=== PATIENT | female | born 1995 | race Caucasian/White ===

== ENCOUNTER 2017-02-16 17:49 | Emergency (ER) | payer OTHER ==
[2017-02-16 18:04] VITALS: BP 140/65
--- NOTE | 2017-02-16 18:35 | UC ---
General HPI - HPI Summary HPI Summary: Patient found a mouse in the tank of her [employer] machine this morning after having a bad tasting coffee. mother had recently been ill and thery are worried it was from using the [employer] - History of Current Complaint Chief Complaint: UCGeneralIllness Stated Complaint: DRANK H2O WITH MOUSE IN IT Time Seen by Provider: 02/16/17 18:18 Hx Obtained From: Patient Onset/Duration: Sudden Onset, Lasting Hours Timing: Constant Onset Severity: Mild Current Severity: Mild - Allergy/Home Medications Allergies/Adverse Reactions: Allergies Allergy/AdvReac Type Severity Reaction Status Date / Time No Known Allergies Allergy Verified 02/16/17 18:04 Home Medications: Home Medications Etonogestrel IMPLANT(NF) [Implanon (NF)] 68 mg IMPLANT ONCE 02/16/17 [History Confirmed 02/16/17] PMH/Surg Hx/FS Hx/Imm Hx Previously Healthy: Yes - Surgical History Surgical History: Yes Surgery Procedure, Year, and Place: tonsillectomy. adenoidectomy. ear tubes - Family History Known Family History: Positive: Hypertension - Social History Alcohol Use: None Substance Use Type: None Smoking Status (MU): Never Smoked Tobacco - Immunization History Vaccination Up to Date: Yes Review of Systems Skin: Negative Eyes: Negative ENT: Negative Respiratory: Negative Cardiovascular: Negative Gastrointestinal: Negative Genitourinary: Negative Motor: Negative Neurovascular: Negative Musculoskeletal: Negative Neurological: Negative Psychological: Negative All Other Systems Reviewed And Are Negative: Yes Physical Exam Triage Information Reviewed: Yes Appearance: Well-Appearing, Well-Nourished, Pain Distress Vital Signs: Initial Vital Signs Temp 98.7 F 02/16/17 18:01 Pulse 87 02/16/17 18:01 Resp 14 02/16/17 18:01 BP 140/65 02/16/17 18:01 Pulse Ox 100 02/16/17 18:01 Vital Signs Reviewed: Yes Eye Exam: Normal Eyes: Positive: Conjunctiva Clear ENT Exam: Normal ENT: Positive: Hearing grossly normal, Pharynx normal, TMs normal Dental Exam: Normal Neck exam: Normal Neck: Positive: Supple, Nontender, No Lymphadenopathy Respiratory Exam: Normal Respiratory: Positive: Chest non-tender, Lungs clear, Normal breath sounds Cardiovascular Exam: Normal Cardiovascular: Positive: RRR, No Murmur, Pulses Normal Abdominal Exam: Normal Abdomen Description: Positive: Nontender, No Organomegaly, Soft Bowel Sounds: Positive: Present Musculoskeletal Exam: Normal Musculoskeletal: Positive: Strength Intact, ROM Intact, No Edema Neurological Exam: Normal Neurological: Positive: Alert, Muscle Tone Normal Psychological Exam: Normal Skin Exam: Normal Course/Dx - Course Course Of Treatment: hx obtained, exam performed, zofran given for nausea, recommend follow up if she becomes symtpomatic - Differential Dx - Multi-Symptom Provider Diagnoses: nausea Discharge - Discharge Plan Condition: Stable Disposition: HOME Prescriptions: Ciprofloxacin TAB* [Cipro 500 MG TAB*] 500 mg PO BID #6 tab Ondansetron ODT TAB* [Zofran 4 MG Odt TAB*] 4 mg PO Q8H PRN #24 tab.odt PRN Reason: Nausea Patient Education Materials: Acute Nausea and Vomiting (ED) Additional Instructions: use the zofran for any nausea, follow up with any vomiting or diarrhea for further testing.
== END 2017-02-16 18:43 | disposition home or self-care (01) ==
LOC: UCCORT 17:49
DX: R11.0 Nausea (principal)
CPT/HCPCS: 99212; G0463

== ENCOUNTER 2017-02-27 14:50 | Emergency (ER) | payer OTHER ==
[2017-02-27 16:58] VITALS: BP 109/67
--- NOTE | 2017-02-27 17:11 | UC ---
Skin Complaint HPI - HPI Summary HPI Summary: pt presents with c/o of erythematous area on right medial aspect of distal 4th finger and proximal right, third finger. Pt reports that she is curretnly taking Cipro for a diagnosis of sinusitis and began taking the medication on 02/24. Pt was also diagnosed with mono. - History of Current Complaint Chief Complaint: UCUpperExtremity Time Seen by Provider: 02/27/17 17:03 Stated Complaint: skin complaint Hx Obtained From: Patient Hx Last Menstrual Period: NEXPLANON ?: No Onset/Duration: Sudden Onset, Lasting Hours Skin Exposure Onset/Duration: Hours Ago Timing: Constant Onset Severity: Mild Current Severity: Mild Location: Discrete, Hand (Right) - right 3rd and 4th finger Character: Pruritus, Hives, Redness, Painful Aggravating: Touch Alleviating: Nothing Associated Signs & Symptoms: Positive: Rash, Tenderness Related History: Recent change in medication - Allergy/Home Medications Allergies/Adverse Reactions: Allergies Allergy/AdvReac Type Severity Reaction Status Date / Time No Known Allergies Allergy Verified 02/27/17 16:58 Review of Systems Constitutional: Fatigue Skin: Rash Eyes: Negative ENT: Negative Respiratory: Cough Cardiovascular: Negative Gastrointestinal: Negative Genitourinary: Negative Motor: Negative Neurovascular: Negative Musculoskeletal: Negative Neurological: Negative Psychological: Negative All Other Systems Reviewed And Are Negative: Yes PMH/Surg Hx/FS Hx/Imm Hx Previously Healthy: Yes - Surgical History Surgical History: Yes Surgery Procedure, Year, and Place: tonsillectomy. adenoidectomy. ear tubes - Family History Known Family History: Positive: Hypertension - Social History Alcohol Use: None Substance Use Type: None Smoking Status (MU): Never Smoked Tobacco - Immunization History Vaccination Up to Date: Yes Physical Exam Triage Information Reviewed: Yes Appearance: Well-Appearing Vital Signs: Initial Vital Signs Temp 98.2 F 02/27/17 16:52 Pulse 79 02/27/17 16:52 Resp 20 02/27/17 16:52 BP 109/67 02/27/17 16:52 Pulse Ox 100 02/27/17 16:52 Vital Signs Reviewed: Yes Eye Exam: Normal ENT Exam: Normal Neck exam: Normal Respiratory Exam: Normal Cardiovascular Exam: Normal Musculoskeletal Exam: Normal Neurological Exam: Normal Psychological Exam: Normal Skin Exam: Other Skin: Positive: rashes, Other - urticaria on right distal medial aspect of 4th finger. Course/Dx - Differential Diagnoses - Skin Complaint Differential Diagnoses: Drug Rash, Urticaria - Diagnoses Provider Diagnoses: urticaria. drug reaction? Discharge - Discharge Plan Condition: Stable Disposition: HOME Prescriptions: Cetirizine-Pseudoephedrine [Zyrtec-D Allergy/Congesti] 1 tab PO Q12H #14 tab Patient Education Materials: Allergic Rhinitis (ED), Dermatitis (ED) Referrals: [facility] [Primary Care Provider] - If Needed (Plesae follow up with your PCP or return to clinic as needed. Please discontinue the ciprofloxcin. ) Additional Instructions: Please take OTC Benadryl as needed and directed on the label.
== END 2017-02-27 17:24 | disposition home or self-care (01) ==
LOC: UCCORT 14:50
DX: L50.9 Urticaria, unspecified (principal); R53.83 Other fatigue; R05 Cough
CPT/HCPCS: 99212; G0463